=== PATIENT | female | born 1970 | race Caucasian/White ===

== ENCOUNTER 2019-09-19 21:31 | Emergency (ER) | payer SELFPAY ==
[2019-09-19] VITALS (7 sets, daily range): BP systolic 105–131; BP diastolic 57–74; PULSE 66–90; RESP 16; TEMP 36.3; O2SAT 97–100; BMI 29.4
--- NOTE | 2019-09-19 21:47 | XR_ITS ---
WS: [id number] XR chest 1V portable [id number] REASON FOR EXAM: chest pain FINDINGS: The right upper lung shows 15 -20% pneumothorax. Scoliosis convex to the left similar to the previous exam of the femoral 2016. The hilum are normal. XR/XR chest 1V portable [id number] IMPRESSION: 15-20% pneumothorax of the right lung . Scoliosis convex to the left.
--- NOTE | 2019-09-19 21:48 | ECG_ITS ---
Measurements Intervals [place] Rate: 88 P: 28 [place]: 104 QRS: -2 QRSD: 82 T: 72 QT: 343 QTc: 417 SINUS RHYTHM WITH SHORT [place] INTERVAL NONSPECIFIC T-WAVE ABNORMALITY Compared to ECG 07/10/2017 11:32:31 No significant changes Electronically Signed On 09-20-2019 14:13:07 MAINTENANCE JOB TITLES by Drake Bull M.D. [email or web address]
--- NOTE | 2019-09-19 21:49 | W.ED.CHESTPA ---
HPI - Chest Pain General: Chief Complaint: Chest Pain Stated Complaint: CP/ BREATHING WEIRD Time Seen by Provider: 09/19/19 21:42 Source: patient Mode of arrival: ambulatory Limitations: no limitations History of Present Illness: HPI narrative: Patient comes in today with complaints of chest pressure going through to her back and left arm pain. Patient does have a history of irregular heart rate. Patient reports symptoms have been going on for the last 2 days. Patient appears well. Patient appears in mild pain. Review of Systems General: Reports: 10 or more systems reviewed and unremarkable except in HPI and below Card: Reports: chest pain PFS ED PFSH: Social History Smoking and tobacco status: former smoker Physical Exam Const: COMMON NORMALS: no apparent distress and oriented x3 GENERAL APPEARANCE: cooperative HENMT: COMMON NORMALS: normocephalic, external ears normal, EAC's normal, TM's normal bilaterally and external nose normal HEAD & SCALP: normal to inspection and normocephalic FACE & SINUS: normal facial exam NOSE: external nose normal GENERAL EAR: hearing not grossly impaired EXTERNAL EAR: Yes external ears normal EXTERNAL AUDITORY CANAL: EAC's normal TYMPANIC MEMBRANE: TM's normal bilaterally MOUTH: oral and palatal mucosa normal THROAT: posterior oropharynx normal Eye: COMMON NORMALS: PERRL and EOMs intact bilaterally PUPIL: Yes PERRL Neck/C-Spine: COMMON NORMALS: full ROM and no lymphadenopathy Lymph: LYMPHATIC: no lymphedema noted Chest: COMMONS NORMALS: inspection of chest normal and palpation of chest normal Resp: COMMON NORMALS: normal respiratory effort and clear to auscultation bilaterally AUSCULTATION: clear to auscultation bilaterally Cardio: COMMON NORMALS: regular rate and regular rhythm RATE: regular rate RHYTHM: regular rhythm GI: COMMON NORMALS: normal to inspection, nondistended, normoactive bowel sounds and non-tender : COMMON NORMALS: Yes no CVA tenderness BLADDER/KIDNEY EXAM: Yes no CVA tenderness Back/Pelvis: COMMON NORMALS: no CVA tenderness and thoracic and lumbar spine normal to inspection Extremity: COMMON NORMALS: normal to inspection GENERAL: No edema Neuro: COMMON NORMALS: oriented x3, moves all extremities and no focal motor deficits Psych: COMMON NORMALS: mental status grossly normal and cooperative Skin: COMMON NORMALS: no rashes or lesions noted GENERAL SKIN EXAM: no rashes or lesions noted Course Vital Signs: Vital signs: Vital Signs Temperature 97.4 F L 09/19/19 21:35 Pulse Rate 66 09/19/19 23:41 Respiratory Rate 16 09/19/19 23:41 Blood Pressure 110/59 09/19/19 23:41 Pulse Oximetry 97 09/19/19 23:41 MDM - Chest Pain MDM Narrative: Medical decision making narrative: Patient comes in today with complaints of of left side chest pressure, neck pain, back pain, and left arm pain. Exam noted chest wall tenderness to palpation anterior chest wall. Heart rates regular. Skin is warm and dry. Abdomen soft nontender. Bowel sounds are present. Differential diagnosis includes ACS, pneumonia, chest wall pain, costochondritis, intervertebral disc disease, facet arthropathy. Chest x-ray noted no abnormality except for significant thoracic scoliosis. Laboratory values noted a normal blood cell count and normal electrolyte panel. Troponin was unchanged at the 2-hour arianne. EKG noted no ST elevation and no significant changes. Patient did have episodes of diarrhea in the ER which may have been due to a viral syndrome or reaction to morphine medication was given for her pain. Patient resolution of her pain prior to discharge and was well to go home. Recommended follow-up with primary care and may be further evaluation with a cardiac stress test. Patient reported understanding and agreed to plan. Lab Data: Labs: Lab Results 09/19/19 09/19/19 09/19/19 Range/Units 21:58 21:58 21:58 WBC 10.1 H (4.0-10.0) 10^3/ uL RBC 4.84 (4.1-5.3) 10^6/u L Hgb 14.8 (11.5-15.3) g/dL Hct 44.1 (37.0-47.0) % MCV 91.1 (81-99) fL MCH 30.6 (28.0-34.0) pg MCHC 33.6 (30.0-36.0) g/dL RDW 11.7 L (12.1-15.1) % Plt Count 252 (130-400) 10^3/c mm MPV 11.6 H (7.4-10.4) fL Neut % (Auto) 88.2 % Lymph % (Auto) 6.7 % Casey % (Auto) 2.8 % Eos % (Auto) 1.2 % Baso % (Auto) 0.8 % Neut # (Auto) 8.9 H (1.8-7.7) 10^3/u L Lymph # (Auto) 0.7 L (0.8-4.8) 10^3/u L Casey # (Auto) 0.3 (0.2-0.9) 10^3/u L Eos # (Auto) 0.1 (0.0-0.8) 10^3/u L Baso # (Auto) 0.1 (0.0-0.1) 10^3/u L Nucleated RBC % (a uto) 0 % Nucleated RBCs # 0.0 /100WBC D-Dimer 0.55 (0-0.59) ug/mIFE U Sodium 135 L (136-145) mmol/L Potassium 4.2 (3.5-5.1) mmol/L Chloride 98 (98-107) mmol/L Carbon Dioxide 22 (22-29) mmol/L Anion Gap 19.2 H (5-19) BUN 20 (6-20) mg/dL Creatinine 0.9 (0.5-0.9) mg/dL GFR Calculation 66.0 L (90-130) mL/min Glucose 121 H (65-115) mg/dL Calcium 10.0 (8.5-10.5) mg/dL Magnesium 2.1 (1.7-2.3) mg/dL Total Bilirubin 0.9 (0.15-1.2) mg/dL AST 39 H (0-32) U/L ALT 42 H (0-33) U/L Alkaline Phosphata se 172 H (35-105) IU/L Troponin T Baselin e (0-10) ng/mL Troponin T 120 Min cahto (0-10) ng/mL Total Protein 8.7 (6.6-8.7) g/dL Albumin 5.0 (3.5-5.2) g/dL Globulin 3.7 (1.3-4.6) g/dL TSH 2.66 (0.27-4.20) uIU/ mL 09/19/19 09/19/19 Range/Units 21:58 23:48 WBC (4.0-10.0) 10^3/ uL RBC (4.1-5.3) 10^6/u L Hgb (11.5-15.3) g/dL Hct (37.0-47.0) % MCV (81-99) fL MCH (28.0-34.0) pg MCHC (30.0-36.0) g/dL RDW (12.1-15.1) % Plt Count (130-400) 10^3/c mm MPV (7.4-10.4) fL Neut % (Auto) % Lymph % (Auto) % Casey % (Auto) % Eos % (Auto) % Baso % (Auto) % Neut # (Auto) (1.8-7.7) 10^3/u L Lymph # (Auto) (0.8-4.8) 10^3/u L Casey # (Auto) (0.2-0.9) 10^3/u L Eos # (Auto) (0.0-0.8) 10^3/u L Baso # (Auto) (0.0-0.1) 10^3/u L Nucleated RBC % (a uto) % Nucleated RBCs # /100WBC D-Dimer (0-0.59) ug/mIFE U Sodium (136-145) mmol/L Potassium (3.5-5.1) mmol/L Chloride (98-107) mmol/L Carbon Dioxide (22-29) mmol/L Anion Gap (5-19) BUN (6-20) mg/dL Creatinine (0.5-0.9) mg/dL GFR Calculation (90-130) mL/min Glucose (65-115) mg/dL Calcium (8.5-10.5) mg/dL Magnesium (1.7-2.3) mg/dL Total Bilirubin (0.15-1.2) mg/dL AST (0-32) U/L ALT (0-33) U/L Alkaline Phosphata se (35-105) IU/L Troponin T Baselin e 6 (0-10) ng/mL Troponin T 120 Min cahto 6.00 (0-10) ng/mL Total Protein (6.6-8.7) g/dL Albumin (3.5-5.2) g/dL Globulin (1.3-4.6) g/dL TSH (0.27-4.20) uIU/ mL EKG Data^: EKG 1: Attestation: I personally reviewed and interpreted this EKG as follows: (2311, NSR, regular rate 77, no ectopy or ST elevation) EKG 2: Attestation: I personally reviewed and interpreted this EKG as follows: (2345, sinus rhythm rate 88, regular, no ectopy, no ST elevation) Discharge Plan Discharge Patient Disposition: Home, Self-Care Clinical Impression: Left-sided chest wall pain Diarrhea Qualifiers: Diarrhea type: unspecified type Qualified Code(s): R19.7 - Diarrhea, unspecified Condition: Stable Prescriptions: No Action ibuprofen 800 mg Tablet 800 mg PO Q8H PRN (Reason: Pain) RF: 0 diltiazem HCl 240 mg Capsule,Extended Release 24 Hr 240 mg PO QAM RF: 0 aspirin 81 mg Tablet,Delayed Release (Dr/Ec) 81 mg PO DAILY RF: 0 amitriptyline 25 mg Tablet 25 mg PO DAILY RF: 0 Diurex 162.5-50 mg Tablet 1 tab PO Q6H RF: 0 Discharge Orders: Discharge Order (Routine); Ordered 09/20/19 Ordered By: Mark Villarreal Referrals: Gail Weir, LEARNING FACILITATOR-C [Primary Care Provider] - Discharge Diet: Usual diet Discharge Activity: Increase activity as tolerated Patient Instructions: Thoracic Pain (ED) Activity Restrictions/Additional Instructions: Ibuprofen and acetaminophen as needed for pain Drink plenty of water with medications Activity as tolerated Follow-up with primary care in one week Return to ER for increase shortness of breath, or high fever Coding Level of Care Code ED Delicatessen Department Manager for Chg Fwd Exam Comprehensive
[2019-09-19 22:10] LABS: Basophils # 0.1 10^3/uL (0.0-0.1); Basophils % 0.8 %; Eosinophils # 0.1 10^3/uL (0.0-0.8); Eosinophils % 1.2 %; Hematocrit 44.1 % (37.0-47.0); Hemoglobin 14.8 g/dL (11.5-15.3); Lymphocytes # 0.7 10^3/uL (0.8-4.8); Lymphocytes % 6.7 %; Mean Corpuscular HGB Conc 33.6 g/dL (30.0-36.0); Mean Corpuscular Hemoglobin 30.6 pg (28.0-34.0); Mean Corpuscular Volume 91.1 fL (81-99); Mean Platelet Volume 11.6 fL (7.4-10.4); Monocytes # 0.3 10^3/uL (0.2-0.9); Monocytes % 2.8 %; Neutrophils # 8.9 10^3/uL (1.8-7.7); Neutrophils % 88.2 %; Nucleated Red Blood Cells % 0 %; Platelet Count 252 10^3/cmm (130-400); Red Blood Count 4.84 10^6/uL (4.1-5.3); Red Cell Distribution Width 11.7 % (12.1-15.1); White Blood Count 10.1 10^3/uL (4.0-10.0)
[2019-09-19 22:25] LABS: D Dimer 0.55 ug/mIFEU (0-0.59)
[2019-09-19 22:38] LABS: Alanine Aminotransferase 42 U/L (0-33); Alkaline Phosphatase 172 IU/L (35-105); Anion Gap 19.2 (5-19); Aspartate Amino Transferase 39 U/L (0-32); Blood Urea Nitrogen 20 mg/dL (6-20); Carbon Dioxide 22 mmol/L (22-29); Chloride 98 mmol/L (98-107); Globulin 3.7 g/dL (1.3-4.6); Glucose 121 mg/dL (65-115); Magnesium 2.1 mg/dL (1.7-2.3); Potassium 4.2 mmol/L (3.5-5.1); Sodium 135 mmol/L (136-145); Thyroid Stimulating Hormone 2.66 uIU/mL (0.27-4.20); Total Bilirubin 0.9 mg/dL (0.15-1.2); Total Protein 8.7 g/dL (6.6-8.7)
[2019-09-19] MEDS: nitroglycerin 1 gm/inch oint Pkt 0.5 INCH TOPICAL (22:46)
[2019-09-19] MEDS: aspirin 81 mg Chew Tablet 162 MG PO (22:47)
[2019-09-19] MEDS: morphine 4 mg/mL SDV 1 mL 2 MG IVP (22:47)
[2019-09-19 23:23] LABS: Troponin(5th) Baseline 6 ng/mL (0-10)
--- NOTE | 2019-09-19 23:48 | ECG_ITS ---
Measurements Intervals [place] Rate: 81 P: [place]: 0 QRS: 1 QRSD: 82 T: 80 QT: 322 QTc: 375 SUPRAVENTRICULAR RHYTHM LOW QRS VOLTAGE IN PRECORDIAL LEADS [QRS DEFLECTION < 1.0 mV IN CHEST LEADS] NONSPECIFIC T-WAVE ABNORMALITY ABNORMAL RHYTHM ECG Compared to ECG 07/10/2017 11:32:31 Supraventricular rhythm now present Low QRS voltage now present Sinus rhythm no longer present Short GA interval no longer present T-wave abnormality still present Electronically Signed On 09-20-2019 14:14:42 ADULT SCHOOL COUNSELOR by Drake Bull M.D. [email or web address]
[2019-09-20] MEDS: diphenoxylate/atropine Tablet 2 TAB PO (00:21)
[2019-09-20] MEDS: sodium chloride 0.9% 1,000 ML 999 ML IV ×2 (00:21→00:22)
[2019-09-20 00:29] LABS: Troponin 5 2HR Delta 0 ABS# (0-10)
[2019-09-20 01:05] VITALS: BP 104/60; PULSE 84; RESP 16; O2SAT 100
== END 2019-09-20 01:34 | disposition home or self-care (01) ==
PROVIDERS: Emergency Provider Nurse Practitioner Family; Family Provider Nurse Practitioner Family; PCP Nurse Practitioner Family
DX: R07.89 Other chest pain (principal); R19.7 Diarrhea, unspecified; Z87.891 Personal history of nicotine dependence
CPT/HCPCS: 71045; 80053; 83735; 84443; 84484; 85025; 85378; 93005; 96361; 96374; 99283; 99284; J2270; J7030

== ENCOUNTER 2019-09-21 21:19 | Emergency (ER) | payer SELFPAY ==
[2019-09-21 21:26] VITALS: BP 160/82; PULSE 80; RESP 18; TEMP 36.7; O2SAT 100; BMI 29.4
--- NOTE | 2019-09-21 21:29 | ED_ITS ---
Entered by Ruthie Zavala, acting as scribe for Delfino Martinez DO Documented by User: Delfino Martinez DO 09/23/19 15:20 HPI - SOB/Dyspnea General: Chief Complaint: Shortness of Breath/Dyspnea Stated Complaint: Pneumothorax Time Seen by Provider: 09/21/19 21:28 Source: patient Mode of arrival: wheelchair Limitations: no limitations History of Present Illness: HPI Narrative: 49 yo Female presents to ED with complaint of shortness of breath, right shoulder pain, chest pain, and back pain. Pt states that when she came in the other day she felt weird and she was breathing weird. Pt's chest xray from 09/19/19 was read as a pneumothorax so she was called back in to be re-evaluated. MD elicited complaint: shortness of breath and chest pain Context: recent illness Timing: constant Exacerbating factors: nothing Relieving factors: nothing Associated symptoms: Reports chest pain; Deny abdominal pain, dizziness, extremity pain, fever(s), nausea, orthopnea, palpitations, polydipsia, polyuria, syncope or vomiting Treatment prior to arrival: none Related Data: Home oxygen amount: none Review of Systems Const: Denies: fever, chills, body aches, fatigue, malaise or night sweats Eyes: Denies: change in vision or blurry vision ENMT: Denies: throat pain, oral sores/lesions, dental pain, nasal discharge or nasal congestion Card: Reports: chest pain; Denies: palpitations, irregular heart rhythm, edema, syncope, shortness of breath on exertion, shortness of breath when lying down or leg pain with exertion Resp: Reports: shortness of breath; Denies: productive cough, non-productive cough or wheezing GI: Denies: abdominal pain, nausea, vomiting, vomiting blood, coffee grounds in vomit, difficulty swallowing, heartburn/indigestion, diarrhea, constipation, cramping, blood in stool or black tarry stool : Denies: flank pain, painful urination, urinary frequency, urinary urgency, urinary incontinence or blood in urine Musc: Denies: neck pain, back pain, extremity pain, extremity swelling, joint pain or joint swelling Skin/Breast: Denies: rash, itching or redness Neuro: Denies: headache, numbness in extremities, weakness in extremities, changes in sensation, lack of coordination, difficulty walking, frequent falls, dizziness, vertigo or confusion Psych: Denies: anxiety, depression, loss of interest, visual hallucinations, auditory hallucinations, suicidal ideation or homicidal ideation Endo: Denies: excessive urination, excessive thirst, tired all the time or cold intolerance Ernst/Lymph: Denies: easy bruising, easy bleeding, petechiae, enlarged lymph nodes or tender lymph nodes PFSH ED PFSH: Social History Smoking and tobacco status: never smoked Female Reproductive History: Date of last menstrual period: 09/14/19 Physical Exam Const: COMMON NORMALS: average body habitus, oriented x3 and alert GENERAL APPEARANCE: cooperative, comfortable, well kempt and well developed NUTRITIONAL APPEARANCE: obese ORIENTATION/CONSCIOUSNESS: Yes awake, Yes oriented to person and Yes oriented to place HENMT: COMMON NORMALS: normocephalic, head/scalp atraumatic, EAC's normal, TM's normal bilaterally, external nose normal, moist oral mucous membranes and oropharynx normal HEAD & SCALP: normocephalic and atraumatic NOSE: external nose normal EXTERNAL AUDITORY CANAL: EAC's normal TYMPANIC MEMBRANE: TM's normal bilaterally MOUTH: oral and palatal mucosa normal, lip normal and tongue normal THROAT: posterior oropharynx normal and tonsils normal Eye: COMMON NORMALS: PERRL, EOMs intact bilaterally, conjunctivae normal and no scleral icterus CONJUNCTIVA: Yes conjunctivae normal PUPIL: Yes PERRL Neck/C-Spine: COMMON NORMALS: full ROM, no lymphadenopathy, supple, no meningeal signs and thyroid normal THYROID: thyroid normal and asymmetrical Lymph: LYMPHATIC: no lymphadenopathy noted Resp: COMMON NORMALS: normal respiratory effort, no retractions, no use of accessory muscles and clear to auscultation bilaterally AUSCULTATION: clear to auscultation bilaterally Cardio: COMMON NORMALS: regular rate and regular rhythm RATE: regular rate RHYTHM: regular rhythm HEART SOUNDS: no murmurs GI: COMMON NORMALS: normal to inspection, nondistended, normoactive bowel sounds, soft to palpation and no hepatosplenomegaly PALPATION: Yes soft and Yes no hepatosplenomegaly : COMMON NORMALS: Yes no CVA tenderness BLADDER/KIDNEY EXAM: Yes no CVA tenderness Back/Pelvis: COMMON NORMALS: no CVA tenderness LUMBAR SPINE/LOWER BACK: Yes normal to inspection Extremity: COMMON NORMALS: no clubbing, cyanosis or edema, no calf tenderness and no pedal edema Neuro: COMMON NORMALS: oriented x3 SENSORIUM/ORIENTATION: Yes alert, Yes oriented to person and Yes oriented to place MENINGEAL SIGNS: Yes no meningeal signs Psych: APPEARANCE: Yes well kempt Skin: COMMON NORMALS: no rashes or lesions noted and skin turgor normal GENERAL SKIN EXAM: no rashes or lesions noted and turgor normal Course ED course: Care turned over to Dr. Campuzano at change of shift Vital Signs: Vital signs: Vital Signs Temperature 98.0 F 09/21/19 21:26 Pulse Rate 72 09/22/19 00:32 Respiratory Rate 18 09/22/19 00:32 Blood Pressure 116/67 09/22/19 00:32 Pulse Oximetry 98 09/22/19 00:32 MDM - SOB/Dyspnea Lab Data: Labs: Lab Results 09/21/19 09/21/19 09/21/19 Range/Units 21:50 21:50 21:50 WBC 6.3 (4.0-10.0) 10^3/ uL RBC 4.32 (4.1-5.3) 10^6/u L Hgb 13.2 (11.5-15.3) g/dL Hct 40.0 (37.0-47.0) % MCV 92.6 (81-99) fL MCH 30.6 (28.0-34.0) pg MCHC 33.0 (30.0-36.0) g/dL RDW 11.5 L (12.1-15.1) % Plt Count 236 (130-400) 10^3/c mm MPV 11.8 H (7.4-10.4) fL Neut % (Auto) 53.1 % Lymph % (Auto) 36.8 % [place] % (Auto) 6.9 % Eos % (Auto) 2.2 % Baso % (Auto) 0.8 % Neut # (Auto) 3.3 (1.8-7.7) 10^3/u L Lymph # (Auto) 2.3 (0.8-4.8) 10^3/u L [place] # (Auto) 0.4 (0.2-0.9) 10^3/u L Eos # (Auto) 0.1 (0.0-0.8) 10^3/u L Baso # (Auto) 0.1 (0.0-0.1) 10^3/u L Nucleated RBC % (a uto) 0 % Nucleated RBCs # 0.0 /100WBC PT 13.70 H (10.5-13.3) SECO NDS INR 1.02 (0.8-1.2) APTT 30.2 (23.9-36.7) SECO NDS Sodium 135 L (136-145) mmol/L Potassium 3.3 L (3.5-5.1) mmol/L Chloride 97 L (98-107) mmol/L Carbon Dioxide 21 L (22-29) mmol/L Anion Gap 20.3 H (5-19) BUN 21 H (6-20) mg/dL Creatinine 0.8 (0.5-0.9) mg/dL GFR Calculation 75.6 L (90-130) mL/min Glucose 91 (65-115) mg/dL Calculated Osmolal ity 276 L (285-295) mOsm/k g Calcium 10.0 (8.5-10.5) mg/dL Discharge Plan Discharge Patient Disposition: Home, Self-Care Clinical Impression: Left-sided chest wall pain Condition: Stable Prescriptions: No Action ibuprofen 800 mg Tablet 800 mg PO Q8H PRN (Reason: Pain) RF: 0 diltiazem HCl 240 mg Capsule,Extended Release 24 Hr 240 mg PO QAM RF: 0 aspirin 81 mg Tablet,Delayed Release (Dr/Ec) 81 mg PO DAILY RF: 0 amitriptyline 25 mg Tablet 25 mg PO DAILY RF: 0 Diurex 162.5-50 mg Tablet 1 tab PO Q6H RF: 0 Discharge Orders: Discharge Order (Routine); Ordered 09/21/19 Ordered By: Declan Campuzano Referrals: Gail Weir GARDEN WORKER-C [Primary Care Provider] - Discharge Diet: Usual diet Discharge Activity: Increase activity as tolerated Patient Instructions: Chest Pain - Chest Wall Activity Restrictions/Additional Instructions: Return for fever, worsening shortness of breath, worsening pain, other concerning symptoms. Discharge Date/Time: 09/22/19 00:33 Coding Level of Care Code ED Coating Machine Helper for Chg Fwd Exam Comprehensive Documented by User: Declan Campuzano DO 09/22/19 04:09 HPI - SOB/Dyspnea General: Chief Complaint: Shortness of Breath/Dyspnea Stated Complaint: Pneumothorax Time Seen by Provider: 09/21/19 21:28 PFSH ED PFSH: Social History Smoking and tobacco status: never smoked Course Vital Signs: Vital signs: Vital Signs Temperature 98.0 F 09/21/19 21:26 Pulse Rate 72 09/22/19 00:32 Respiratory Rate 18 09/22/19 00:32 Blood Pressure 116/67 09/22/19 00:32 Pulse Oximetry 98 09/22/19 00:32 MDM - SOB/Dyspnea MDM Narrative: Medical decision making narrative: 49-year-old lady checked out to me by Dr. Galdamez. CT was ordered because of conflicting findings of no pneumothorax on her chest x-ray. CT chest shows no pneumothorax, infiltrate, or other abnormality. Labs are benign. She will be allowed home. She was counseled extensively. Lab Data: Labs: Lab Results 09/21/19 09/21/19 09/21/19 Range/Units 21:50 21:50 21:50 WBC 6.3 (4.0-10.0) 10^3/ uL RBC 4.32 (4.1-5.3) 10^6/u L Hgb 13.2 (11.5-15.3) g/dL Hct 40.0 (37.0-47.0) % MCV 92.6 (81-99) fL MCH 30.6 (28.0-34.0) pg MCHC 33.0 (30.0-36.0) g/dL RDW 11.5 L (12.1-15.1) % Plt Count 236 (130-400) 10^3/c mm MPV 11.8 H (7.4-10.4) fL Neut % (Auto) 53.1 % Lymph % (Auto) 36.8 % [place] % (Auto) 6.9 % Eos % (Auto) 2.2 % Baso % (Auto) 0.8 % Neut # (Auto) 3.3 (1.8-7.7) 10^3/u L Lymph # (Auto) 2.3 (0.8-4.8) 10^3/u L [place] # (Auto) 0.4 (0.2-0.9) 10^3/u L Eos # (Auto) 0.1 (0.0-0.8) 10^3/u L Baso # (Auto) 0.1 (0.0-0.1) 10^3/u L Nucleated RBC % (a uto) 0 % Nucleated RBCs # 0.0 /100WBC PT 13.70 H (10.5-13.3) SECO NDS INR 1.02 (0.8-1.2) APTT 30.2 (23.9-36.7) SECO NDS Sodium 135 L (136-145) mmol/L Potassium 3.3 L (3.5-5.1) mmol/L Chloride 97 L (98-107) mmol/L Carbon Dioxide 21 L (22-29) mmol/L Anion Gap 20.3 H (5-19) BUN 21 H (6-20) mg/dL Creatinine 0.8 (0.5-0.9) mg/dL GFR Calculation 75.6 L (90-130) mL/min Glucose 91 (65-115) mg/dL Calculated Osmolal ity 276 L (285-295) mOsm/k g Calcium 10.0 (8.5-10.5) mg/dL Discharge Plan Discharge Patient Disposition: Home, Self-Care Clinical Impression: Left-sided chest wall pain Condition: Stable Prescriptions: No Action ibuprofen 800 mg Tablet 800 mg PO Q8H PRN (Reason: Pain) RF: 0 diltiazem HCl 240 mg Capsule,Extended Release 24 Hr 240 mg PO QAM RF: 0 aspirin 81 mg Tablet,Delayed Release (Dr/Ec) 81 mg PO DAILY RF: 0 amitriptyline 25 mg Tablet 25 mg PO DAILY RF: 0 Diurex 162.5-50 mg Tablet 1 tab PO Q6H RF: 0 Discharge Orders: Discharge Order (Routine); Ordered 09/21/19 Ordered By: Declan Campuzano Referrals: Gail Weir, GARDEN WORKER-C [Primary Care Provider] - Discharge Diet: Usual diet Discharge Activity: Increase activity as tolerated Patient Instructions: Chest Pain - Chest Wall Activity Restrictions/Additional Instructions: Return for fever, worsening shortness of breath, worsening pain, other concerning symptoms. Discharge Date/Time: 09/22/19 00:33 Coding Level of Care Code ED Coating Machine Helper for Chg Fwd Exam Comprehensive The documentation recorded by the Sally post Carmen, accurately reflects the service I personally performed and the decisions made by Michelle rivera Curtis L, DO Sep 21, 2019 21:19
--- NOTE | 2019-09-21 21:29 | XR_ITS ---
WS: [id number] XR chest 1V portable [id number] REASON FOR EXAM: dyspnea/cough FINDINGS: Scoliotic curve convex to the left similar to the previous exam September 19, 2019. Improving pneumothorax down to approximately 5% on the right upper lung. The heart mediastinum are normal. XR/XR chest 1V portable [id number] IMPRESSION: Improving right pneumothorax.
[2019-09-21 21:53] LABS: Basophils # 0.1 10^3/uL (0.0-0.1); Basophils % 0.8 %; Eosinophils # 0.1 10^3/uL (0.0-0.8); Eosinophils % 2.2 %; Hemoglobin 13.2 g/dL (11.5-15.3); Lymphocytes # 2.3 10^3/uL (0.8-4.8); Lymphocytes % 36.8 %; Mean Corpuscular Hemoglobin 30.6 pg (28.0-34.0); Mean Corpuscular Volume 92.6 fL (81-99); Mean Platelet Volume 11.8 fL (7.4-10.4); Monocytes # 0.4 10^3/uL (0.2-0.9); Monocytes % 6.9 %; Neutrophils # 3.3 10^3/uL (1.8-7.7); Neutrophils % 53.1 %; Nucleated Red Blood Cells % 0 %; Platelet Count 236 10^3/cmm (130-400); Red Blood Count 4.32 10^6/uL (4.1-5.3); Red Cell Distribution Width 11.5 % (12.1-15.1); White Blood Count 6.3 10^3/uL (4.0-10.0)
--- NOTE | 2019-09-21 21:58 | CTR_ITS ---
PROCEDURE INFORMATION: Exam: CT Chest With Contrast Exam date and time: 09/21/2019 10:53 PM Age: 49 years old Clinical indication: Shortness of breath; Prior surgery; Surgery date: 6+ months; Surgery type: Open heart as a child; Patient HX: C/O SOB and cp - ? spontaneous pneumo; Additional info: Dyspnea. Chest pain, pneumo on cxr TECHNIQUE: Imaging protocol: Computed tomography of the chest with intravenous contrast. Total DLP: 545.86 mGy-cm Radiation optimization: All CT scans at this facility use at least one of these dose optimization techniques: automated exposure control; mA and/or kV adjustment per patient size (includes targeted exams where dose is matched to clinical indication); or iterative reconstruction. Contrast material: OMNI 300; Contrast volume: 95 ml; Contrast route: 20G; COMPARISON: CR XR chest 1V portable [id number] 09/21/2019 9:32 PM FINDINGS: Lungs: Unremarkable. No consolidation. No masses. Pleural space: Unremarkable. No pneumothorax. No pleural effusion. Heart: Unremarkable. No cardiomegaly. No pericardial effusion. Aorta: Unremarkable. No aortic aneurysm. Lymph nodes: Unremarkable. No enlarged lymph nodes. Gallbladder and bile ducts: Cholecystectomy. Kidneys and ureters: Left renal cyst. Bones/joints: Unremarkable. No acute fracture. Soft tissues: Unremarkable. CT/CT chest w con* [id number] IMPRESSION: 1. Negative for infiltrate. 2. Cholecystectomy. 3. Left renal cyst. Radiation Dose CTDIVOL = (mGy): DLP = 545.86 (mGy-cm)
[2019-09-21 22:02] LABS: INR 1.02 (0.8-1.2); Partial Thromboplastin Time 30.2 SECONDS (23.9-36.7)
[2019-09-21 22:20] LABS: Anion Gap 20.3 (5-19); Blood Urea Nitrogen 21 mg/dL (6-20); Carbon Dioxide 21 mmol/L (22-29); Chloride 97 mmol/L (98-107); Creatinine Clr Calc Pharmacy 80.8488; Glomerular Filtration Rate 75.6 mL/min (90-130); Glucose 91 mg/dL (65-115); Osmolality Calculated 276 mOsm/kg (285-295); Potassium 3.3 mmol/L (3.5-5.1); Sodium 135 mmol/L (136-145)
[2019-09-21] MEDS: iohexol 300 mg/mL 100 mL Btl IV (23:12)
[2019-09-22 00:32] VITALS: BP 116/67; PULSE 72; RESP 18; O2SAT 98
== END 2019-09-22 00:33 | disposition home or self-care (01) ==
PROVIDERS: Family Medicine; Emergency Provider Emergency Medicine; Family Provider Nurse Practitioner Family; PCP Nurse Practitioner Family
DX: R07.89 Other chest pain (principal); E66.9 Obesity, unspecified; Z68.29 Body mass index [BMI] 29.0-29.9, adult
CPT/HCPCS: 36415; 71045; 71260; 80048; 85025; 85610; 85730; 99281; 99283; Q9967

== ENCOUNTER 2021-03-17 13:16 | Outpatient (CLI) | payer OTHER, MEDICAID, SELFPAY ==
--- NOTE | 2021-03-17 13:21 | XR_ITS ---
WS: [id number] CERVICAL SPINE TECHNIQUE: 3 views of the cervical spine CLINICAL INFORMATION: S13.4XXA - Sprain of ligaments of cervical spine, initial... COMPARISON: None. FINDINGS: Straightening of the normal cervical lordosis. Moderate spondylitic changes. Normal C1-C2 articulatio n. Normal prevertebral soft tissues. Mild disc space narrowing C5-C6. Moderate facet arthropathy in t he mid and lower cervical spine worse on the left. Normal dens. XR/XR cervical spine 3V* [id number] IMPRESSION: Straightening of the normal cervical lordosis with moderate spondylitic changes . No visualized fractures.
== END 2021-03-17 13:17 | disposition home or self-care (01) ==
PROVIDERS: PCP Nurse Practitioner Family; Visit Provider Nurse Practitioner Family
DX: S13.4XXA Sprain of ligaments of cervical spine, initial encounter (principal); X58.XXXA Exposure to other specified factors, initial encounter
CPT/HCPCS: 72040

== ENCOUNTER 2021-04-12 15:24 | Outpatient (CLI) | payer MEDICAID, SELFPAY ==
--- NOTE | 2021-04-12 15:45 | USCV_ITS ---
Nathalie De Paz Age: 50 Gender: F : 1970 Exam Date: 04/12/2021 15:35 Ordering Phys: LENORA Lyn APRN Technologist: [place] [facility] [place]: ARRITHIMA BP: 126 / 73 HR: 74 Rhythm: Sinus Technical Quality: Adequate MEASUREMENTS (Male / Female) Normal Values 2D ECHO LV Diastolic Diameter PLAX 3.8 cm 4.2 - 5.9 / 3.9 - 5.3 cm LV Systolic Diameter PLAX 2.8 cm IVS Diastolic Thickness 0.9 cm 0.6 - 1.0 / 0.6 - 0.9 cm IVS Systolic Thickness 1.3 cm LVPW Diastolic Thickness 0.7 cm 0.6 - 1.0 / 0.6 - 0.9 cm LVPW Systolic Thickness 1.0 cm LVOT Diameter 2.0 cm LV Ejection Fraction 2D Teich 50.5 % LV Ejection Fraction MOD 2C 54.0 % LV Ejection Fraction 2C AL 52.2 % LA Diameter 3.5 cm LA Width 3.5 cm LA Height 4.8 cm RA Width 3.3 cm RA Height 4.3 cm Aorta at Sinotubular Diameter 3.1 cm DOPPLER AV Peak Velocity 113.0 cm/s LVOT Peak Velocity 84.0 cm/s AV Area Cont Eq vti 1.9 cm squared AV Area Cont Eq pk 2.3 cm squared MV Area PHT 5.0 cm squared Mitral E to A Ratio 1.2 MV E' Velocity 55.0 cm/s Mitral E to MV E' Ratio 11.0 Mitral E to LV E' Lateral Ratio 10.1 Mitral E to LV E' Septal Ratio 12.2 TR Peak Velocity 156.0 cm/s TR Peak Gradient 9.7 mmHg Right Atrial Pressure 3.0 mmHg Pulmonary Artery Systolic Pressu 12.7 mmHg FINDINGS Left Ventricle Diffuse hypokinesis of the left ventricle with ejection fraction of 45 to 50%(visual) Right Ventricle The right ventricle is normal in size and function. Right Atrium The right atrium is normal in size. Left Atrium Mildly increased left atrial size. Mitral Valve Thickened mitral valve. Trace mitral valve regurgitation. Aortic Valve No gross abnormalities noted Tricuspid Valve No gross abnormalities noted Pulmonic Valve Pulmonic valve not well visualized. Pericardium Normal pericardium without effusion. Aorta Normal ascending aorta dimension. CONCLUSIONS Diffuse hypokinesis of the left ventricle with ejection fraction of 45 to 50%(visual). Thickened mitral valve. Trace mitral valve regurgitation. Mildly increased left atrial size. There is no pericardial effusion. There are no intracardiac masses. No previous study is available for comparison. Compared to the study from 12/14/2016, there is slight worsening of LV systolic function Dr Jenny Wang MD [facility] (Electronically Signed) Final Date: 13 April 2021 01:28 S
== END 2021-04-12 15:25 | disposition home or self-care (01) ==
LOC: US 15:25
PROVIDERS: PCP Nurse Practitioner Family; Visit Provider Nurse Practitioner Family
DX: I49.9 Cardiac arrhythmia, unspecified (principal); R53.83 Other fatigue; I34.0 Nonrheumatic mitral (valve) insufficiency
CPT/HCPCS: 93306

== ENCOUNTER → 2021-08-24 10:11 | Outpatient (BNVA) | payer MEDICAID, SELFPAY | PROVIDERS: PCP Nurse Practitioner Family; Visit Provider Nurse Practitioner Family | DX: R53.83 Other fatigue (principal); E55.9 Vitamin D deficiency, unspecified; M25.569 Pain in unspecified knee; I48.91 Unspecified atrial fibrillation; Z79.899 Other long term (current) drug therapy; Z13.6 Encounter for screening for cardiovascular disorders; Z87.74 Personal history of (corrected) congenital malformations of heart and circulatory system | CPT/HCPCS: 36415; 73562; 80053; 80061; 81003; 82306; 83036; 84443; 85025; 87086 ==

== ENCOUNTER 2022-02-22 16:19 | Emergency (ER) | payer MEDICAID, SELFPAY ==
[2022-02-22] VITALS (7 sets, daily range): BP systolic 107–160; BP diastolic 68–120; PULSE 72–142; RESP 15–24; TEMP 36.9; O2SAT 97–100; BMI 29.9
--- NOTE | 2022-02-22 16:30 | ECG_ITS ---
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 Measurements Intervals [place] Rate: 142 P: VA: QRS: 18 QRSD: 96 T: 16 QT: 298 QTc: 459 Interpretive Statements ATRIAL FLUTTER WITH RAPID VENTRICULAR RESPONSE MODERATE ST DEPRESSION [0.05+ mV ST DEPRESSION] Compared to ECG 09/19/2019 23:45:08 ST (T wave) deviation now present Sinus rhythm no longer present Short VA interval no longer present T-wave abnormality no longer present Electronically Signed On 02-22-2022 21:31:32 CDT by Suad Sandhu M.D. [id number] f
[2022-02-22] MEDS: dilTIAZem 5 mg/mL SDV 5 mL 20 MG IVP (16:44)
[2022-02-22 16:46] LABS: Basophils # 0.1 10^3/uL (0.0-0.1); Basophils % 1.4 %; Eosinophils # 0.2 10^3/uL (0.0-0.8); Eosinophils % 2.1 %; Hematocrit 44.8 % (37.0-47.0); Lymphocytes # 3.8 10^3/uL (0.8-4.8); Lymphocytes % 37.4 %; Mean Corpuscular HGB Conc 33.5 g/dL (30.0-36.0); Mean Corpuscular Hemoglobin 31.6 pg (28.0-34.0); Mean Corpuscular Volume 94.5 fl (81-99); Mean Platelet Volume 12.1 fL (7.4-10.4); Monocytes # 0.5 10^3/uL (0.2-0.9); Monocytes % 5.2 %; Neutrophils # 5.41 10^3/uL (1.8-7.7); Neutrophils % 53.7 %; Nucleated Red Blood Cells % 0 %; Platelet Count 253 10^3/cmm (130-400); Red Blood Count 4.74 10^6/uL (4.1-5.3); Red Cell Distribution Width 11.4 % (12.1-15.1); White Blood Count 10.1 10^3/uL (4.0-10.0)
[2022-02-22] MEDS: sodium chloride 0.9% 1,000 ML 999 ML IV (16:49)
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
[2022-02-22 17:09] LABS: Troponin(5th) Baseline 6 ng/L (0-10)
[2022-02-22 17:19] LABS: Anion Gap 17.3 (5-19); Blood Urea Nitrogen 19 mg/dL (6-20); Calcium 9.9 mg/dL (8.5-10.5); Carbon Dioxide 23 mmol/L (22-29); Chloride 104 mmol/L (98-107); Free T4 Free Thyroxine 0.98 ng/dL (0.82-1.77); Glomerular Filtration Rate 65.5 mL/min (90-130); Glucose 130 mg/dL (65-115); Magnesium 2.1 mg/dL (1.7-2.3); Osmolality Calculated 294 mOsm/kg (285-295); Potassium 4.3 mmol/L (3.5-5.1); Sodium 140 mmol/L (136-145); Thyroid Stimulating Hormone 2.87 uIU/mL (0.27-4.20)
[2022-02-22 17:28] LABS: D Dimer 0.32 ug/mIFEU (0-0.59)
--- NOTE | 2022-02-22 18:30 | ECG_ITS ---
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 Measurements Intervals [place] Rate: 96 P: MN: QRS: 14 QRSD: 102 T: 36 QT: 341 QTc: 433 Interpretive Statements ATRIAL FIBRILLATION NONSPECIFIC T-WAVE ABNORMALITY ABNORMAL RHYTHM ECG Compared to ECG 02/22/2022 16:48:41 Atrial flutter no longer present T-wave abnormality still present Electronically Signed On 02-22-2022 21:39:28 CDT by Suad Sandhu M.D. [id number]
[2022-02-22 19:27] LABS: Troponin 5 2HR Delta 0 ABS# (0-10)
[2022-02-22] MEDS: dilTIAZem 60 mg Tablet PO (19:29)
--- NOTE | 2022-02-22 22:30 | ECG_ITS ---
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 Measurements Intervals [place] Rate: 79 P: NM: QRS: 26 QRSD: 101 T: 89 QT: 344 QTc: 396 Interpretive Statements ATRIAL FLUTTER NONSPECIFIC T-WAVE ABNORMALITY ABNORMAL RHYTHM ECG Compared to ECG 02/22/2022 16:34:28 T-wave abnormality now present Atrial fibrillation no longer present ST (T wave) deviation no longer present Electronically Signed On 02-22-2022 21:41:31 CDT by Suad Sandhu M.D. [id number]
--- NOTE | 2022-02-23 07:26 | DCPLANNER ---
Addendum entered by Maribel Obrien 03/03/22 11:20: Patient had a follow up appointment scheduled with [facility] - patient did attend appointment. Addendum entered by Maribel Obrien 02/24/22 09:17: Patient has a follow up appointment scheduled for Monday, February 28, 2022 at 11:15 with [employer], Mel Stallings at [facility]. Clinic will call patient with appointment information. Original Note: manager embalmer funeral director had message to schedule a follow up appointment for patient with cardiology. manager embalmer funeral director sent patients information to the front office staff at [facility]. Patients information will be printed and reviewed. Clinic will call patient with appointment information.
== END 2022-02-22 19:46 | disposition home or self-care (01) ==
PROVIDERS: Emergency Provider Emergency Medicine; PCP Nurse Practitioner Family
DX: I48.91 Unspecified atrial fibrillation (principal); R07.9 Chest pain, unspecified; Z79.82 Long term (current) use of aspirin; E78.2 Mixed hyperlipidemia
CPT/HCPCS: 80048; 83735; 84439; 84443; 84484; 85025; 85378; 93005; 96374; 99285; J3490; J7030

== ENCOUNTER → 2022-02-28 10:46 | Outpatient (BNVA) | payer MEDICAID, SELFPAY | PROVIDERS: PCP Nurse Practitioner Family; Visit Provider Nurse Practitioner Family | DX: I48.0 Paroxysmal atrial fibrillation (principal); I11.0 Hypertensive heart disease with heart failure; I50.20 Unspecified systolic (congestive) heart failure | CPT/HCPCS: 93005; 99214 ==

== ENCOUNTER 2022-03-08 13:26 | Outpatient (CLI) | payer MEDICAID, SELFPAY ==
[2022-03-08 14:30] LABS: Anion Gap 16.4 (5-19); Blood Urea Nitrogen 15 mg/dL (6-20); Calcium 9.5 mg/dL (8.5-10.5); Carbon Dioxide 25 mmol/L (22-29); Chloride 101 mmol/L (98-107); Glucose 155 mg/dL (65-115); Osmolality Calculated 290 mOsm/kg (285-295); Potassium 4.4 mmol/L (3.5-5.1); Sodium 138 mmol/L (136-145)
== END 2022-03-08 13:27 | disposition home or self-care (01) ==
LOC: LAB 13:29
PROVIDERS: PCP Nurse Practitioner Family; Visit Provider Nurse Practitioner Family
DX: I48.91 Unspecified atrial fibrillation (principal); I50.20 Unspecified systolic (congestive) heart failure
CPT/HCPCS: 36415; 80048

== ENCOUNTER 2022-04-20 12:42 | Outpatient (CLI) | payer MEDICAID, SELFPAY ==
--- NOTE | 2022-04-20 13:00 | USCV_ITS ---
Nathalie De Paz Age: 51 Gender: F : 1970 Exam Date: 04/20/2022 13:23 Ordering Phys: Mel Stallings Technologist: KIRSTIN Exam Location: [facility] [place] Indication: FOLLOW UP LV FUNCTION BP: 142 / 80 HR: 101 Rhythm: Sinus Technical Quality: Adequate MEASUREMENTS (Male / Female) Normal Values 2D ECHO LV Diastolic Diameter PLAX 4.4 cm 4.2 - 5.9 / 3.9 - 5.3 cm LV Systolic Diameter PLAX 3.2 cm IVS Diastolic Thickness 1.0 cm 0.6 - 1.0 / 0.6 - 0.9 cm IVS Systolic Thickness 1.6 cm LVPW Diastolic Thickness 1.2 cm 0.6 - 1.0 / 0.6 - 0.9 cm LVPW Systolic Thickness 1.5 cm LVOT Diameter 2.0 cm LV Ejection Fraction 2D Teich 54.3 % LV Ejection Fraction MOD 2C 57.8 % LV Ejection Fraction 2C AL 60.7 % LA Diameter 3.4 cm LA Width 3.4 cm LA Height 5.2 cm RA Width 2.8 cm RA Height 4.8 cm Aorta at Sinotubular Diameter 2.2 cm IVC Diameter 2.1 cm M-MODE Aortic Annulus Diameter 3.0 cm LA Ao Ratio MM 1.1 MV E Point Septal Separation 0.4 cm DOPPLER AV Peak Velocity 156.0 cm/s LVOT Peak Velocity 111.0 cm/s AV Area Cont Eq vti 2.7 cm squared AV Area Cont Eq pk 2.2 cm squared MV Peak Velocity 97.0 cm/s MV Area PHT 4.8 cm squared Mitral E to A Ratio 1.6 MV E' Velocity 57.0 cm/s Mitral E to MV E' Ratio 9.9 Mitral E to LV E' Lateral Ratio 8.5 Mitral E to LV E' Septal Ratio 11.7 TR Peak Velocity 217.9 cm/s TR Peak Gradient 19.0 mmHg TR Mean Velocity 175.0 cm/s TR Mean Gradient 13.0 mmHg TR Velocity Time Integral 60.5 cm TV Peak E Velocity 51.0 cm/s Right Atrial Pressure 3.0 mmHg Pulmonary Artery Systolic Pressu 22.0 mmHg PV Peak Velocity 100.0 cm/s RV Acceleration Time 0.1 s RV Ejection Time 0.3 s RV AcT/ET 0.4 FINDINGS Left Ventricle Normal left ventricular size. LV systolic function is normal with EF of 55-60%. No regional wall motion abnormalities. Right Ventricle The right ventricle is normal in size and function. Right Atrium The right atrium is normal in size. Left Atrium The left atrium is dilated Mitral Valve Structurally normal mitral valve . Mild mitral valve regurgitation Aortic Valve Structurally normal aortic valve without significant sclerosis or stenosis. There is no aortic regurgitation. Tricuspid Valve Structurally normal tricuspid valve without significant stenosi. Mild tricuspid egurgitation. Pulmonary artery systolic pressure is normal. Pulmonic Valve Mild pulmonic regurgitation Pericardium Normal pericardium without effusion. Aorta Normal ascending aorta dimension. IVC The inferior vena cava appears normal. CONCLUSIONS Left ventricle is normal in size. LV systolic function is normal with EF of 55-60% Mild mitral regurgitation Mild tricuspid regurgitation Mild pulmonic regurgitation Compared to prior echocardiogram from 04/12/2021, LV systolic function has improved. Shashank Resendiz MD (Electronically Signed) Final Date: 04 May 2022 10:57 S
== END 2022-04-20 12:43 | disposition home or self-care (01) ==
LOC: RAD 12:47
PROVIDERS: Visit Provider Nurse Practitioner Family
DX: I50.20 Unspecified systolic (congestive) heart failure (principal); I48.91 Unspecified atrial fibrillation; I08.3 Combined rheumatic disorders of mitral, aortic and tricuspid valves
CPT/HCPCS: 93306

== ENCOUNTER → 2022-05-23 12:13 | Outpatient (BNVA) | payer MEDICAID, SELFPAY | PROVIDERS: PCP Nurse Practitioner; Visit Provider Nurse Practitioner | DX: M25.50 Pain in unspecified joint (principal); R53.83 Other fatigue; M25.521 Pain in right elbow | CPT/HCPCS: 80053; 84443; 85025; 85651; 86038; 86140; 86431 ==

== ENCOUNTER → 2022-06-09 15:20 | Outpatient (BNVA) | payer MEDICAID, SELFPAY | PROVIDERS: PCP Nurse Practitioner; Visit Provider Physician Assistant | DX: M47.22 Other spondylosis with radiculopathy, cervical region (principal); M50.322 Other cervical disc degeneration at C5-C6 level; M48.02 Spinal stenosis, cervical region | CPT/HCPCS: 72050 ==

== ENCOUNTER 2022-08-11 15:00 | Outpatient (CLI) | payer MEDICAID, SELFPAY ==
--- NOTE | 2022-08-11 14:30 | MR_ITS ---
WS: [id number] MRI CERVICAL SPINE NONCONTRAST HISTORY: pain COMPARISON: Cervical spine radiographs 06/09/2022 Technique: Multiplanar, multisequence noncontrast imaging of the cervical spine. Mild curvature and straightening of the normal cervical lordosis. Signal within the cervical cord is normal. Visualized posterior fossa is unremarkable. Craniocervical junction, C1 and C2 relationship, odontoid process and soft tissues are normal. C2-C3: Normal. C3-C4: Normal. C4-C5: Mild osteophytic ridging with bilateral mild to moderate facet joint arthritis, LEFT greater t taylor RIGHT. Small central disc protrusion. Very mild central and LEFT foraminal narrowing. C5-C6: Mild osteophytic ridging and bilateral facet joint arthritis. Very mild foraminal narrowing. C6-C7: LEFT foraminal osteophyte resulting in moderate foraminal stenosis. There is also bilateral fa cet joint arthritis, LEFT greater than RIGHT. C7-T1: Normal. Paraspinal soft tissue are normal. Small bilateral nerve root sleeve diverticulum at C7-T1 and on the RIGHT at T1-2. MR/MR cervical spin wo con* [id number] IMPRESSION: 1. Curvature and scoliosis cervical and upper thoracic spine. 2. Central disc protrusion at C4-5. There is mild central and LEFT foraminal s tenosis at C4-5. 3. Moderate LEFT foraminal stenosis at C6-7. 4. Mild foraminal stenosis at C5-6.
== END 2022-08-11 15:01 | disposition home or self-care (01) ==
LOC: RAD 15:01
PROVIDERS: PCP Nurse Practitioner; Visit Provider Physician Assistant
DX: S13.4XXA Sprain of ligaments of cervical spine, initial encounter (principal); M41.82 Other forms of scoliosis, cervical region; M41.84 Other forms of scoliosis, thoracic region; M50.221 Other cervical disc displacement at C4-C5 level; M48.02 Spinal stenosis, cervical region; X58.XXXA Exposure to other specified factors, initial encounter
CPT/HCPCS: 72141

== ENCOUNTER → 2022-09-23 08:59 | Outpatient (BNVA) | payer MEDICAID, SELFPAY | PROVIDERS: PCP Nurse Practitioner; Visit Provider Nurse Practitioner | DX: R53.83 Other fatigue (principal); E78.2 Mixed hyperlipidemia; E55.9 Vitamin D deficiency, unspecified | CPT/HCPCS: 80053; 80061; 82306; 83540; 84443; 85025 ==

== ENCOUNTER 2022-11-16 10:22 | Outpatient (CLI) | payer MEDICAID, SELFPAY ==
--- NOTE | 2022-11-16 | ECG_ITS ---
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 Interpretive Statements NAME OF STUDY: EXERCISE SESTAMIBI STRESS TEST INDICATION: [FATIGUE, ] EXERCISE DATA: The patient was exercised by Parvez protocol. Baseline heart rate was 82 beats per minute. Baseline blood pressure was 127/79 millimeters of mercury. Target heart rate was 141 beats per minute. Maximum heart rate achieved was 161 which was 114% of the target heart rate. Maximum blood pressure was 153/63 millimeters of mercury. Total exercise time was 7 minutes 20 seconds. Maximum METs achieved was 10.2. ELECTROCARDIOGRAM: BASELINE: Showed sinus rhythm, normal axis, no significant ST-T changes at the baseline noted. [] EXERCISE: At the peak exercise level, [] No significant ST-T changes suggestive of ischemia noted. [] RECOVERY: During the recovery period, heart rate dropped appropriately. No significant ST-T changes in the recovery suggestive of ischemia noted. [] CONCLUSION: 1. Exercise capacity is good 2. Heart rate response was appropriate 3. Blood pressure response was appropriate 4. Symptoms not suggestive of ischemia. 5. Electrocardiogram portion of the stress test was not suggestive of ischemia. 6. Nuclear scan will be documented separately. Electronically Signed On 12-17-2022 20:44:38 CDT by Shashank Resendiz M.D. [id number]
--- NOTE | 2022-11-16 10:45 | NMCV_ITS ---
NM cherie perf SPECT r/s* [id number] aNthalie De Paz Age: 52 Gender: F : 1970 Exam Date: 11/16/2022 10:45 Ordering Phys: Mel Stallings Technologist: YAJAIRA Grullon Exam Location: [facility] Indications: CONGESTIVE HEART FAILURE, A FIB STRESS TEST [facility] IMAGE PROTOCOL Rest/Stress 1 Exercise Day Radiopharmaceutical Dose (mCi) Administration Site Administered by Rest: Tc-99m 11.0 IV YAJAIRA Osborne Sestamibi Stress:Tc-99m 32.6 IV YAJAIRA Grullon Sestamiabiodun Rest: 16-Nov-2022 60 Discovery 630 Stress: 16-Nov-2022 15 Discovery 630 Radiopharmaceutical was injected at 85 % maximum heart rate. Images obtained in supine and prone position. SPECT RESULTS Technical Quality: Excellent Raw Data Analysis: Normal Image Corrections: No attenuation or motion correction applied Summed Stress Score: 2 Summed Rest Score: 2 Summed Difference Score: 1 PERFUSION FINDINGS SPECT images demonstrate homogeneous tracer distribution throughout the myocardium. FUNCTIONAL RESULTS (calculated via Gated SPECT) Stress Image LV EF (%): 69 Stress EDV (mL):75 TID: 1.36 Stress ESV (mL):23 FUNCTIONAL FINDINGS: There is normal left ventricular systolic function. TID ratio is elevated. IMPRESSIONS 1. Normal myocardial perfusion imaging with no evidence of ischemia 2. LV systolic function is normal. 3. TID ratio is elevated. This may represent subendocardial ischemia. Shasahnk Resendiz MD (Electronically Signed) Final Date: 21 November 2022 11:48 S
[2022-11-16 10:49] VITALS: BMI 30.4
[2022-11-16] MEDS: metoprolol tartrate 1 mg/1 mL SDV 5 mL 5 MG IV (12:57)
[2022-11-16 13:47] VITALS: BP 159/77; PULSE 99
== END 2022-11-16 10:23 | disposition home or self-care (01) ==
LOC: CDL 10:25
PROVIDERS: PCP Nurse Practitioner; Visit Provider Nurse Practitioner Family
DX: I50.9 Heart failure, unspecified (principal); I48.91 Unspecified atrial fibrillation
CPT/HCPCS: 36415; 78452; 93017; 96375; A9500; J3490

== ENCOUNTER → 2022-11-21 10:58 | Outpatient (BNVA) | payer MEDICAID, SELFPAY | PROVIDERS: PCP Nurse Practitioner Family; Referring Provider Nurse Practitioner; Visit Provider Internal Medicine Rheumatology | DX: M54.16 Radiculopathy, lumbar region (principal); Z79.899 Other long term (current) drug therapy; M19.90 Unspecified osteoarthritis, unspecified site | CPT/HCPCS: 36415; 72072; 72202; 82306; 84439; 84443; 85651; 86038; 86140; 86200; 86431 ==

== ENCOUNTER 2023-01-12 06:00 | Outpatient (RCR) | payer MEDICAID, SELFPAY | END 2023-01-27 23:59 | disposition home or self-care (01) | LOC: WPT 06:00 | PROVIDERS: Visit Provider Anesthesiology Pain Medicine | DX: M54.50 Low back pain, unspecified (principal); G89.29 Other chronic pain | CPT/HCPCS: 97110; 97162; 97530 ==

== ENCOUNTER 2023-01-28 06:00 | Outpatient (RCR) | payer MEDICAID, SELFPAY | END 2023-02-27 23:59 | disposition home or self-care (01) | LOC: WPT 06:00 | PROVIDERS: Visit Provider Anesthesiology Pain Medicine | DX: M54.50 Low back pain, unspecified (principal); G89.29 Other chronic pain | CPT/HCPCS: 97110; 97530 ==

== ENCOUNTER 2023-02-28 06:00 | Outpatient (RCR) | payer MEDICAID, SELFPAY | END 2023-03-30 23:59 | disposition home or self-care (01) | LOC: WPT 06:00 | PROVIDERS: PCP Nurse Practitioner Family; Visit Provider Anesthesiology Pain Medicine | DX: M54.50 Low back pain, unspecified (principal); G89.29 Other chronic pain | CPT/HCPCS: 97110 ==

== ENCOUNTER → 2023-03-01 15:50 | Outpatient (BNVA) | payer MEDICAID, SELFPAY | PROVIDERS: PCP Nurse Practitioner Family; Visit Provider Internal Medicine Rheumatology | DX: M25.50 Pain in unspecified joint (principal); Z79.899 Other long term (current) drug therapy; K75.81 Nonalcoholic steatohepatitis (NASH); Z79.1 Long term (current) use of non-steroidal anti-inflammatories (NSAID); M06.041 Rheumatoid arthritis without rheumatoid factor, right hand; M06.042 Rheumatoid arthritis without rheumatoid factor, left hand | CPT/HCPCS: 36415; 80076; 82565; 84439; 84443; 85025; 86140 ==

== ENCOUNTER → 2023-06-28 13:57 | Outpatient (BNVA) | payer MEDICAID, SELFPAY | PROVIDERS: PCP Nurse Practitioner Family; Visit Provider Internal Medicine Rheumatology | DX: M06.041 Rheumatoid arthritis without rheumatoid factor, right hand (principal); M06.042 Rheumatoid arthritis without rheumatoid factor, left hand; M25.50 Pain in unspecified joint; K75.81 Nonalcoholic steatohepatitis (NASH); Z79.1 Long term (current) use of non-steroidal anti-inflammatories (NSAID) | CPT/HCPCS: 36415; 80076; 82565; 85025; 86140 ==

== ENCOUNTER → 2023-10-18 13:43 | Outpatient (BNVA) | payer MEDICAID, SELFPAY | PROVIDERS: Visit Provider Internal Medicine Rheumatology | DX: M06.041 Rheumatoid arthritis without rheumatoid factor, right hand (principal); M06.042 Rheumatoid arthritis without rheumatoid factor, left hand; M25.50 Pain in unspecified joint; K75.81 Nonalcoholic steatohepatitis (NASH); Z79.1 Long term (current) use of non-steroidal anti-inflammatories (NSAID) | CPT/HCPCS: 36415; 80076; 82565; 85025; 86140 ==

== ENCOUNTER 2024-07-02 09:50 | Outpatient (CLI) | payer MEDICAID, SELFPAY ==
--- NOTE | 2024-07-02 10:00 | MM_ITS ---
WS: [id number] BILATERAL 3D TOMOSYNTHESIS DIGITAL SCREENING MAMMOGRAPHY WITH CAD CLINICAL INFORMATION: SCREENING HISTORY: Screening mammogram. No current complaints. COMPARISON: 2022 TECHNIQUE: Bilateral CC and MLO views. FINDINGS: Scattered fibroglandular densities bilaterally. No suspicious focal mass, asymmetry, calcifications, or architectural distortion. No evidence of malignancy. MM/MM scr BI tomosynthesis [id number] IMPRESSION: DENSITY: There are scattered areas of fibroglandular density. BI-RADS: 1 - Negative. FOLLOW UP: 1 Year Follow-up Recommend return to annual screening mammography.
== END 2024-07-02 09:51 | disposition home or self-care (01) ==
LOC: MOBLMAM 09:55
PROVIDERS: PCP Nurse Practitioner Family; Visit Provider Nurse Practitioner Family
DX: Z12.31 Encounter for screening mammogram for malignant neoplasm of breast (principal); R92.323 Mammographic fibroglandular density, bilateral breasts
CPT/HCPCS: 77063; 77067

== ENCOUNTER → 2024-08-20 15:15 | Outpatient (BNVA) | payer MEDICAID, SELFPAY | PROVIDERS: PCP Nurse Practitioner Family; Visit Provider Internal Medicine Rheumatology | DX: M06.041 Rheumatoid arthritis without rheumatoid factor, right hand (principal); M06.042 Rheumatoid arthritis without rheumatoid factor, left hand; Z79.899 Other long term (current) drug therapy; M25.50 Pain in unspecified joint; K75.81 Nonalcoholic steatohepatitis (NASH); Z79.1 Long term (current) use of non-steroidal anti-inflammatories (NSAID) | CPT/HCPCS: 36415; 80076; 82565; 85025; 85652; 86140 ==

== ENCOUNTER → 2024-11-26 14:49 | Outpatient (BNVA) | payer MEDICAID, SELFPAY | PROVIDERS: PCP Nurse Practitioner Family; Visit Provider Internal Medicine Rheumatology | DX: Z79.899 Other long term (current) drug therapy (principal) | CPT/HCPCS: 36415; 80076; 82306; 82565; 85025; 85651; 86140 ==

== ENCOUNTER → 2025-04-09 15:11 | Outpatient (BNVA) | payer MEDICAID, SELFPAY | PROVIDERS: PCP Nurse Practitioner Family; Visit Provider Internal Medicine Rheumatology | DX: M06.041 Rheumatoid arthritis without rheumatoid factor, right hand (principal); M06.042 Rheumatoid arthritis without rheumatoid factor, left hand | CPT/HCPCS: 36415; 80076; 82565; 85025; 85651; 86140 ==